=== PATIENT | male | born 1965 | race Caucasian/White ===

== ENCOUNTER 2024-08-15 14:00 | Outpatient (CLI) | payer BC, SELFPAY ==
[2024-08-19 13:10] LABS: Varicella-Zoster Virus Source Vesicle; Varicella-Zoster Virus by PCR Not Detected
== END 2024-08-15 14:01 | disposition home or self-care (01) ==
PROVIDERS: Visit Provider Physician Assistant Medical
DX: L30.8 Other specified dermatitis (principal)
CPT/HCPCS: 86787; 87070